=== PATIENT | male | born 1960 | race Caucasian/White ===

== ENCOUNTER 2021-02-28 18:25 | Inpatient (IN) | payer OTHER ==
[~2021-02-28 18:25] MED LIST: Iopamidol-370 76% 500 ML 1 ML ONE
[2021-02-28] MEDS ORDERED: Fentanyl 100 MCG/2 ML VIAL ONE ×7 (18:44→22:01)
[2021-02-28 19:08] LABS: Hemoglobin 16.4 g/dL (14.0-18.0); Mean Corpuscular HGB CONC 34.1 g/dL (32.0-36.0); Mean Corpuscular Hemoglobin 29.4 pg (27.0-31.0); Mean Corpuscular Volume 86.3 fL (78.0-98.0); Mean Platelet Volume 7.4 fL (7.4-10.4); Platelet Count 339 thou/uL (130-400); RBC Distribution Width 14.1 % (11.5-14.5); Red Blood Cell (RBC) Count 5.56 mill/uL (4.70-6.10); White Blood Cell (WBC) Count 20.5 thou/uL (4.8-10.8)
[2021-02-28 19:27] LABS: ALT (SGPT) 73 U/L (8-55); AST (SGOT) 62 U/L (5-34); Albumin 4.2 g/dL (3.5-5.0); Alkaline Phosphatase 96 U/L (40-110); Anion Gap 20 mmol/L (10-20); BUN (Urea Nitrogen) 39 mg/dL (8.4-25.7); Band 9 % (5-11); Bilirubin, Total 0.4 mg/dL (0.2-1.2); Calc. Creatinine Clearance 0 mL/min (70-130); Calcium 9.2 mg/dL (7.8-10.44); Carbon Dioxide 16 mmol/L (22-29); Chloride 103 mmol/L (98-107); Globulin 3.7 g/dL (2.4-3.5); Glucose 302 mg/dL (70-105); Lymphocytes 15 % (21-51); MDiff Complete? YES; Monocytes 4 % (0-10); Neutrophil 72 % (42-75); Platelet Morphology Comment Appears Adequate; Potassium 4.9 mmol/L (3.5-5.1); Protein, Total 7.9 g/dL (6.0-8.3); RBC Morphology Normal; Sodium 134 mmol/L (136-145)
[2021-02-28] MEDS ORDERED: Promethazine HCl 25 MG/ML VIAL ONE (19:44)
[2021-02-28] MEDS ORDERED: Bupivacaine PF 0.5% 30 ML VIAL ONE (20:03)
[2021-02-28] MEDS ORDERED: Lidocaine 1% w/Epinephrine 1:100K 20 ML VIAL ONE (20:03)
[2021-02-28] MEDS ORDERED: Midazolam HCl 2 mg/2 ml Vial ONE (20:08)
[2021-02-28] MEDS ORDERED: Ondansetron PF 4 MG/2 ML Vial IVP PRN (20:09)
[2021-02-28] MEDS ORDERED: Ondansetron ODT 4 MG TAB PO PRN (20:09)
[2021-02-28] MEDS ORDERED: Dextrose 50% Abboject 50 ML SYRINGE SLOW IVP PRN (20:09)
[2021-02-28] MEDS ORDERED: Promethazine HCl 25 MG/ML VIAL IM PRN ×2 (20:09→21:25)
[2021-02-28] MEDS ORDERED: Dextrose 5% in Water 1,000 ML IV PRN (20:09)
[2021-02-28] MEDS ORDERED: hydrALAZINE 20 MG/ML VIAL SLOW IVP PRN (20:09)
[2021-02-28] MEDS ORDERED: Rib Fracture Protocol PO PRN (20:15)
[2021-02-28] MEDS ORDERED: PHENYLEPHRINE-NS 100 MCG/ML 10 ML SYRINGE ONE (20:36)
[2021-02-28] MEDS ORDERED: Lidocaine 1% PF 5 ML VIAL ONE (20:36)
[2021-02-28] MEDS ORDERED: PROPOFOL 200 MG/20 ML VIAL ONE (20:36)
[2021-02-28] MEDS ORDERED: Succinylcholine 200 MG/10 ml SYRINGE FS ONE (20:36)
[2021-02-28 20:55] LABS: SARS-CoV-2 NAA Rapid Test Not Detected (NotDetected)
[2021-02-28] MEDS ORDERED: Promethazine HCl 25 MG/ML VIAL IVPB PRN (21:25)
[2021-02-28] MEDS ORDERED: Ondansetron HCl/PF 4 MG/2 ML Vial IVP PRN (21:25)
[2021-02-28] MEDS: Enoxaparin Sodium 30 MG/0.3 ML SYRINGE SC SCH (23:14)
[2021-02-28] MEDS: Lactated Ringer's 1,000 ML IV SCH (23:14)
[2021-02-28] MEDS: Famotidine 20 MG TAB PO SCH (23:15)
[2021-02-28] MEDS: Senokot S 8.6-50 MG TAB PO SCH (23:15)
[2021-02-28 23:19] LABS: Lactic Acid 3.5 mmol/L (0.5-2.2)
[2021-02-28 23:59] VITALS: BMI 48.9
[2021-03-01] MEDS: Morphine 4 MG/ML VIAL SLOW IVP PRN ×5 (00:33→22:55)
[2021-03-01] MEDS: HumaLOG 300 UNITS/3 ML VIAL SC PRN ×5 (00:48→21:22)
[2021-03-01] MEDS: Cyclobenzaprine 10 MG TAB PO PRN ×3 (00:49→21:33)
[2021-03-01 02:38] LABS: Bacteria/HPF None Seen HPF (None Seen); Bilirubin Negative (Negative); Blood, Urine 3+ (Negative); Clarity Clear (Clear); Glucose, Urine (Dipstick) Greater than 1000 mg/dL (Negative); Ketone, Urine Negative (Negative); Leukocyte Negative Leu/uL (Negative); Nitrite Negative (Negative); Protein, Urine (Dipstick) 50 mg/dL (Neg-Trace); RBC/HPF 21-50 HPF (0-3); Specific Gravity, Urine 1.039 (1.002-1.036); Squamous Epithelial None Seen HPF (0-3); Urobilinogen Normal mg/dL (Less than 2); pH, Urine 5.5 (5.0-9.0)
[2021-03-01 03:32] LABS: #Lymphocytes 1.2 thou/uL (1.20-3.40); #Monocytes 1.1 thou/uL (0.11-0.59); #Neutrophils 14.7 thou/uL (1.40-6.50); %Basophils 0.1 % (0.0-1.0); %Eosinophils 0.1 % (0.0-10.0); %Monocytes 6.3 % (0.0-10.0); %Neutrophils 86.5 % (42.0-75.0); Hemoglobin 14.8 g/dL (14.0-18.0); Mean Corpuscular HGB CONC 34.8 g/dL (32.0-36.0); Mean Corpuscular Hemoglobin 29.9 pg (27.0-31.0); Mean Corpuscular Volume 85.9 fL (78.0-98.0); Mean Platelet Volume 7.3 fL (7.4-10.4); Platelet Count 269 thou/uL (130-400); Red Blood Cell (RBC) Count 4.95 mill/uL (4.70-6.10); White Blood Cell (WBC) Count 16.9 thou/uL (4.8-10.8)
[2021-03-01 03:52] LABS: Anion Gap 19 mmol/L (10-20); BUN (Urea Nitrogen) 45 mg/dL (8.4-25.7); Calc. Creatinine Clearance 81 mL/min (70-130); Calcium 8.7 mg/dL (7.8-10.44); Carbon Dioxide 17 mmol/L (22-29); Chloride 104 mmol/L (98-107); Glucose 376 mg/dL (70-105); Magnesium 1.9 mg/dL (1.6-2.6); Phosphorus 4.2 mg/dL (2.3-4.7); Potassium 5.1 mmol/L (3.5-5.1); Sodium 135 mmol/L (136-145)
[2021-03-01] MEDS ORDERED: Ibuprofen 800 MG TAB PO SCH (06:00)
[2021-03-01] MEDS: traMADol HCl 50 MG TAB PO SCH ×3 (06:13→17:56)
[2021-03-01] MEDS: Acetaminophen 500 MG TAB PO SCH ×3 (06:14→17:55)
[2021-03-01] MEDS: Lactated Ringer's 1,000 ML IV SCH (07:16)
[2021-03-01] MEDS ORDERED: Sodium Chloride 0.9% 1,000 ML IV SCH (07:30)
[2021-03-01] MEDS ORDERED: Magnesium 2 GM/50 ML 2 GM in Premix Bag 1 BAG IVPB SCH (08:00)
[2021-03-01 08:24] LABS: Lactic Acid 2.4 mmol/L (0.5-2.2)
[2021-03-01 08:34] LABS: Hemoglobin A1c 7.9 % (4.0-6.0)
[2021-03-01] MEDS: Gabapentin 300 MG CAP PO SCH ×3 (10:00→21:23)
[2021-03-01] MEDS: Famotidine 20 MG TAB PO SCH ×2 (10:00→21:22)
[2021-03-01] MEDS: Enoxaparin Sodium 30 MG/0.3 ML SYRINGE SC SCH ×2 (10:00→21:22)
[2021-03-01] MEDS: Senokot S 8.6-50 MG TAB PO SCH ×2 (10:01→22:44)
[2021-03-01] MEDS: Polyethylene Glycol 3350 17 GM Packet PO SCH (10:01)
[2021-03-01] MEDS: Lantus 1000 UNITS/10 ML VIAL SC SCH (10:03)
[2021-03-01] MEDS: Sodium Bicarbonate 150 MEQ in Dextrose 5% in Water 1,000 ML IV SCH (10:13)
[2021-03-02] MEDS: traMADol HCl 50 MG TAB PO SCH ×4 (00:01→17:14)
[2021-03-02] MEDS: Morphine 4 MG/ML VIAL SLOW IVP PRN ×2 (03:39→08:07)
[2021-03-02] MEDS: Acetaminophen 500 MG TAB PO SCH ×4 (05:33→17:16)
[2021-03-02] MEDS: HumaLOG 300 UNITS/3 ML VIAL SC PRN ×3 (05:34→17:17)
[2021-03-02 07:00] LABS: #Lymphocytes 0.9 thou/uL (1.20-3.40); #Monocytes 1.1 thou/uL (0.11-0.59); #Neutrophils 14.3 thou/uL (1.40-6.50); %Basophils 0.1 % (0.0-1.0); %Eosinophils 0.1 % (0.0-10.0); %Lymphocytes 5.4 % (21.0-51.0); %Monocytes 6.7 % (0.0-10.0); %Neutrophils 87.7 % (42.0-75.0); Hemoglobin 14.3 g/dL (14.0-18.0); Mean Corpuscular Hemoglobin 29.3 pg (27.0-31.0); Mean Corpuscular Volume 86.3 fL (78.0-98.0); Mean Platelet Volume 7.6 fL (7.4-10.4); Platelet Count 219 thou/uL (130-400); RBC Distribution Width 13.9 % (11.5-14.5); Red Blood Cell (RBC) Count 4.86 mill/uL (4.70-6.10); White Blood Cell (WBC) Count 16.3 thou/uL (4.8-10.8)
[2021-03-02 07:53] LABS: Anion Gap 17 mmol/L (10-20); BUN (Urea Nitrogen) 22 mg/dL (8.4-25.7); Calc. Creatinine Clearance 172 mL/min (70-130); Calcium 8.7 mg/dL (7.8-10.44); Carbon Dioxide 23 mmol/L (22-29); Chloride 95 mmol/L (98-107); Glucose 319 mg/dL (70-105); Magnesium 2.2 mg/dL (1.6-2.6); Phosphorus 2.3 mg/dL (2.3-4.7); Potassium 4.5 mmol/L (3.5-5.1); Sodium 130 mmol/L (136-145)
[2021-03-02 07:59] LABS: Actual Bicarbonate (HCO3a) 24.9 mEq/L (22-28); Base Excess (BEa) 1.3 mEq/L (-2.0 to +3.0); CO2 Tension 36.6 mmHg (35.0-45.0); Calcium, Ionized (arterial) 1.07 mmol/L (1.12-1.30); Carboxyhemoglobin (COHb) 1.7 gm% (0.0-3.0); Hemoglobin (Hb) 14.9 g/dL (14.0-18.0); Potassium - ABG Lab 4.38 mmol/L (3.70-5.30); pH, Arterial 7.45 (7.35-7.45)
[2021-03-02 08:01] LABS: Puncture Site RRA
[2021-03-02] MEDS ORDERED: metFORMIN XR 500 MG TAB PO SCH (09:00)
[2021-03-02] MEDS ORDERED: Polyethylene Glycol 3350 17 GM Packet PO SCH (09:00)
[2021-03-02] MEDS ORDERED: Non-Formulary Item 1 EACH (Lisinopril [Lisinopril] 40 MG Tablet) PO SCH (09:00)
[2021-03-02] MEDS: Sodium Bicarbonate 150 MEQ in Dextrose 5% in Water 1,000 ML IV SCH ×3 (09:21→18:27)
[2021-03-02] MEDS: Enoxaparin Sodium 30 MG/0.3 ML SYRINGE SC SCH ×2 (09:24→21:03)
[2021-03-02] MEDS: guaiFENesin ER 600 MG TAB PO SCH ×2 (09:25→21:02)
[2021-03-02] MEDS: Polyethylene Glycol 3350 17 GM Packet PO SCH (09:25)
[2021-03-02] MEDS: Lisinopril 20 MG TAB PO SCH (09:25)
[2021-03-02] MEDS: metFORMIN XR 500 MG TAB PO SCH ×2 (09:26→21:02)
[2021-03-02] MEDS: Ketorolac Tromethamine 30 MG/ML VIAL IVP SCH ×3 (09:26→21:03)
[2021-03-02] MEDS: Famotidine 20 MG TAB PO SCH ×2 (09:28→21:02)
[2021-03-02] MEDS: Gabapentin 300 MG CAP PO SCH ×3 (09:28→21:03)
[2021-03-02] MEDS: Lantus 1000 UNITS/10 ML VIAL SC SCH (09:29)
[2021-03-02] MEDS: Senokot S 8.6-50 MG TAB PO SCH ×2 (09:30→21:08)
[2021-03-02] MEDS ORDERED: Dextrose 50% Abboject 50 ML SYRINGE SLOW IVP PRN (20:05)
[2021-03-02] MEDS ORDERED: Sodium Chloride 0.9% 1,000 ML IV SCH (20:15)
[2021-03-02] MEDS ORDERED: Pravastatin Sodium 40 MG TAB PO SCH (21:00)
[2021-03-02] MEDS: Atorvastatin Calcium 10 MG TAB PO SCH (21:02)
[2021-03-02] MEDS: Insulin Regular 300 UNITS/3 ML VIAL SC PRN (21:11)
[2021-03-03] MEDS: traMADol HCl 50 MG TAB PO SCH ×5 (00:02→23:50)
[2021-03-03] MEDS: Acetaminophen 500 MG TAB PO SCH ×5 (00:05→23:50)
[2021-03-03] MEDS: Ketorolac Tromethamine 30 MG/ML VIAL IVP SCH ×2 (04:08→09:17)
[2021-03-03 05:55] LABS: #Eosinphils 0.1 thou/uL (0.0-0.7); #Lymphocytes 1.4 thou/uL (1.20-3.40); #Monocytes 0.7 thou/uL (0.11-0.59); #Neutrophils 9.5 thou/uL (1.40-6.50); %Basophils 0.2 % (0.0-1.0); %Eosinophils 1.2 % (0.0-10.0); %Lymphocytes 12.1 % (21.0-51.0); %Neutrophils 80.5 % (42.0-75.0); Mean Corpuscular HGB CONC 33.2 g/dL (32.0-36.0); Mean Corpuscular Hemoglobin 29.2 pg (27.0-31.0); Mean Corpuscular Volume 87.9 fL (78.0-98.0); Mean Platelet Volume 7.5 fL (7.4-10.4); Platelet Count 169 thou/uL (130-400); RBC Distribution Width 13.7 % (11.5-14.5); Red Blood Cell (RBC) Count 4.12 mill/uL (4.70-6.10); White Blood Cell (WBC) Count 11.8 thou/uL (4.8-10.8)
[2021-03-03] MEDS: Insulin Regular 300 UNITS/3 ML VIAL SC PRN ×3 (05:59→21:48)
[2021-03-03 06:22] LABS: Anion Gap 17 mmol/L (10-20); BUN (Urea Nitrogen) 43 mg/dL (8.4-25.7); CK (CPK) 1404 U/L (30-200); Calc. Creatinine Clearance 59 mL/min (70-130); Carbon Dioxide 25 mmol/L (22-29); Chloride 91 mmol/L (98-107); Glucose 208 mg/dL (70-105); Magnesium 2.2 mg/dL (1.6-2.6); Potassium 4.1 mmol/L (3.5-5.1); Sodium 129 mmol/L (136-145)
[2021-03-03 06:24] LABS: Phosphorus 4.5 mg/dL (2.3-4.7)
[2021-03-03] MEDS: guaiFENesin ER 600 MG TAB PO SCH ×2 (08:33→20:20)
[2021-03-03] MEDS: Gabapentin 300 MG CAP PO SCH (08:33)
[2021-03-03] MEDS: Polyethylene Glycol 3350 17 GM Packet PO SCH (08:33)
[2021-03-03] MEDS: Senokot S 8.6-50 MG TAB PO SCH ×2 (08:34→20:21)
[2021-03-03] MEDS: Famotidine 20 MG TAB PO SCH ×2 (08:34→20:20)
[2021-03-03] MEDS: Cyclobenzaprine 10 MG TAB PO PRN (08:34)
[2021-03-03] MEDS: Enoxaparin Sodium 30 MG/0.3 ML SYRINGE SC SCH ×2 (08:34→20:21)
[2021-03-03] MEDS: Empagliflozin 25 MG TAB PO SCH (08:36)
[2021-03-03] MEDS: Lantus 1000 UNITS/10 ML VIAL SC SCH (08:38)
[2021-03-03] MEDS ORDERED: Non-Formulary Item 1 EACH (Dapagliflozin Propanediol [Farxiga] 10 MG Tablet) PO SCH (09:00)
[2021-03-03] MEDS: Lisinopril 20 MG TAB PO SCH (09:17)
[2021-03-03] MEDS: metFORMIN XR 500 MG TAB PO SCH ×2 (09:19→20:20)
[2021-03-03] MEDS ORDERED: Pregabalin 75 MG CAP PO SCH ×2 (09:45→21:00)
[2021-03-03] MEDS ORDERED: Furosemide 40 MG/4 ML VIAL SLOW IVP SCH (10:15)
[2021-03-03] MEDS: Sodium Bicarbonate 150 MEQ in Dextrose 5% in Water 1,000 ML IV SCH ×2 (11:00→20:20)
[2021-03-03] MEDS ORDERED: Hydrocortisone Sod Succ/PF 100 mg/2 ml Vial IVP SCH (12:15)
[2021-03-03] MEDS: Hydrocortisone Sod Succ/PF 100 mg/2 ml Vial IVP SCH ×2 (15:29→21:47)
[2021-03-03] MEDS: Morphine 2 MG/ML VIAL SLOW IVP PRN (18:01)
[2021-03-03] MEDS: Pregabalin 75 MG CAP PO SCH (20:21)
[2021-03-03] MEDS: Atorvastatin Calcium 10 MG TAB PO SCH (20:21)
[2021-03-04] MEDS: Cyclobenzaprine 10 MG TAB PO PRN ×2 (04:00→11:10)
[2021-03-04] MEDS: Hydrocortisone Sod Succ/PF 100 mg/2 ml Vial IVP SCH ×3 (05:24→20:33)
[2021-03-04] MEDS: Acetaminophen 500 MG TAB PO SCH ×5 (05:33→23:03)
[2021-03-04] MEDS: traMADol HCl 50 MG TAB PO SCH ×5 (05:34→23:03)
[2021-03-04] MEDS: Insulin Regular 300 UNITS/3 ML VIAL SC PRN ×4 (05:34→20:51)
[2021-03-04] MEDS: Senokot S 8.6-50 MG TAB PO SCH ×2 (08:08→20:33)
[2021-03-04] MEDS: guaiFENesin ER 600 MG TAB PO SCH ×2 (08:08→20:31)
[2021-03-04] MEDS: metFORMIN XR 500 MG TAB PO SCH ×2 (08:09→20:31)
[2021-03-04] MEDS: Lantus 1000 UNITS/10 ML VIAL SC SCH (08:09)
[2021-03-04] MEDS: Famotidine 20 MG TAB PO SCH ×2 (08:10→20:31)
[2021-03-04] MEDS: Empagliflozin 25 MG TAB PO SCH (08:10)
[2021-03-04] MEDS: Polyethylene Glycol 3350 17 GM Packet PO SCH (08:10)
[2021-03-04] MEDS: Enoxaparin Sodium 30 MG/0.3 ML SYRINGE SC SCH ×2 (08:10→20:31)
[2021-03-04] MEDS: Lisinopril 20 MG TAB PO SCH (08:11)
[2021-03-04 09:07] LABS: Phosphorus 3.9 mg/dL (2.3-4.7)
[2021-03-04 09:11] LABS: Anion Gap 13 mmol/L (10-20); BUN (Urea Nitrogen) 53 mg/dL (8.4-25.7); Calc. Creatinine Clearance 117 mL/min (70-130); Calcium 8.1 mg/dL (7.8-10.44); Carbon Dioxide 32 mmol/L (22-29); Chloride 89 mmol/L (98-107); Glucose 187 mg/dL (70-105); Magnesium 2.5 mg/dL (1.6-2.6); Potassium 4.3 mmol/L (3.5-5.1); Sodium 130 mmol/L (136-145)
[2021-03-04 09:22] LABS: Band 17 % (5-11); Hemoglobin 11.2 g/dL (14.0-18.0); Lymphocytes 6 % (21-51); MDiff Complete? YES; Mean Corpuscular Hemoglobin 29.4 pg (27.0-31.0); Mean Corpuscular Volume 86.4 fL (78.0-98.0); Mean Platelet Volume 7.1 fL (7.4-10.4); Monocytes 4 % (0-10); Neutrophil 73 % (42-75); Platelet Count 197 thou/uL (130-400); RBC Distribution Width 13.7 % (11.5-14.5); Red Blood Cell (RBC) Count 3.82 mill/uL (4.70-6.10); White Blood Cell (WBC) Count 12.1 thou/uL (4.8-10.8)
[2021-03-04] MEDS ORDERED: Pregabalin 75 MG CAP PO SCH (10:00)
[2021-03-04] MEDS ORDERED: diphenhydrAMINE 25 MG CAP PO PRN (10:11)
[2021-03-04] MEDS: HYDROcodone/Acetaminophen 10/325 mg Tablet PO PRN ×2 (10:26→17:19)
[2021-03-04] MEDS: Pregabalin 75 MG CAP PO SCH ×2 (10:44→20:32)
[2021-03-04] MEDS: Morphine 2 MG/ML VIAL SLOW IVP PRN ×3 (11:09→20:59)
[2021-03-04] MEDS ORDERED: Hydrocortisone Sod Succ/PF 100 mg/2 ml Vial IVP SCH (11:18)
[2021-03-04] MEDS ORDERED: Naloxone HCl 0.4 mg/ml Vial IV PRN (12:15)
[2021-03-04] MEDS ORDERED: HYDROmorphone 10 MG in Sodium Chloride 0.9% 95 ML IVPB PRN (12:15)
[2021-03-04] MEDS: acetaZOLAMIDE Sodium 500 mg Vial IVP SCH ×2 (15:18→23:02)
[2021-03-04] MEDS: Atorvastatin Calcium 10 MG TAB PO SCH (20:31)
[2021-03-04] MEDS ORDERED: acetaZOLAMIDE Sodium 500 mg Vial IVP SCH (21:00)
[2021-03-04] MEDS ORDERED: Sterile Water 10 ML VIAL FS PRN ×2 (22:54→22:55)
[2021-03-05] MEDS: Morphine 2 MG/ML VIAL SLOW IVP PRN (01:02)
[2021-03-05] MEDS: Acetaminophen 500 MG TAB PO SCH ×2 (04:57→12:20)
[2021-03-05] MEDS: Hydrocortisone Sod Succ/PF 100 mg/2 ml Vial IVP SCH ×3 (04:58→20:22)
[2021-03-05] MEDS: acetaZOLAMIDE Sodium 500 mg Vial IVP SCH ×3 (04:58→20:21)
[2021-03-05] MEDS: traMADol HCl 50 MG TAB PO SCH (04:59)
[2021-03-05] MEDS: Insulin Regular 300 UNITS/3 ML VIAL SC PRN ×3 (05:51→17:08)
[2021-03-05 09:36] LABS: Chloride 95 mmol/L (98-107); Potassium 4.1 mmol/L (3.5-5.1); Sodium 132 mmol/L (136-145)
[2021-03-05 09:37] LABS: Calcium 9.1 mg/dL (7.8-10.44); Glucose 215 mg/dL (70-105)
[2021-03-05 09:39] LABS: Anion Gap 14 mmol/L (10-20); Carbon Dioxide 27 mmol/L (22-29)
[2021-03-05] MEDS: Enoxaparin Sodium 30 MG/0.3 ML SYRINGE SC SCH ×2 (09:40→20:21)
[2021-03-05 09:41] LABS: Calc. Creatinine Clearance 158 mL/min (70-130)
[2021-03-05] MEDS: guaiFENesin ER 600 MG TAB PO SCH ×2 (09:41→20:23)
[2021-03-05] MEDS: metFORMIN XR 500 MG TAB PO SCH ×2 (09:41→20:22)
[2021-03-05] MEDS: Senokot S 8.6-50 MG TAB PO SCH ×2 (09:41→20:23)
[2021-03-05 09:42] LABS: BUN (Urea Nitrogen) 44 mg/dL (8.4-25.7)
[2021-03-05] MEDS: Empagliflozin 25 MG TAB PO SCH (09:42)
[2021-03-05] MEDS: Famotidine 20 MG TAB PO SCH ×2 (09:42→20:22)
[2021-03-05] MEDS: Lisinopril 20 MG TAB PO SCH (09:42)
[2021-03-05 09:43] LABS: Magnesium 2.5 mg/dL (1.6-2.6)
[2021-03-05] MEDS: Polyethylene Glycol 3350 17 GM Packet PO SCH (09:43)
[2021-03-05] MEDS: Pregabalin 75 MG CAP PO SCH ×2 (09:43→20:22)
[2021-03-05] MEDS: Lantus 1000 UNITS/10 ML VIAL SC SCH (09:44)
[2021-03-05 09:53] LABS: Phosphorus 4.9 mg/dL (2.3-4.7)
[2021-03-05] MEDS ORDERED: Piperacillin/Tazobactam 3.375 GM in Sodium Chloride 0.9% 100 ML IVPB SCH ×2 (11:00→12:00)
[2021-03-05] MEDS: HYDROcodone/Acetaminophen 10/325 mg Tablet PO SCH ×3 (12:21→20:23)
[2021-03-05] MEDS: Acetylcysteine 10% 100 MG/ML 30 ml Vial INH SCH ×2 (13:15→19:28)
[2021-03-05] MEDS: Acetaminophen 325 MG TAB PO SCH ×2 (17:06→23:15)
[2021-03-05] MEDS: Piperacillin/Tazobactam 3.375 GM in Sodium Chloride 0.9% 100 ML IVPB SCH (17:12)
[2021-03-05] MEDS: Atorvastatin Calcium 10 MG TAB PO SCH (20:22)
[2021-03-06] MEDS: Acetylcysteine 10% 100 MG/ML 30 ml Vial INH SCH ×5 (02:00→23:29)
[2021-03-06] MEDS: HYDROcodone/Acetaminophen 10/325 mg Tablet PO SCH ×4 (03:13→20:14)
[2021-03-06] MEDS: Piperacillin/Tazobactam 3.375 GM in Sodium Chloride 0.9% 100 ML IVPB SCH ×3 (03:14→18:11)
[2021-03-06] MEDS: Hydrocortisone Sod Succ/PF 100 mg/2 ml Vial IVP SCH ×3 (05:04→20:13)
[2021-03-06] MEDS: Acetaminophen 325 MG TAB PO SCH ×4 (05:04→23:20)
[2021-03-06] MEDS: acetaZOLAMIDE Sodium 500 mg Vial IVP SCH (05:05)
[2021-03-06 05:53] LABS: Anion Gap 15 mmol/L (10-20); BUN (Urea Nitrogen) 33 mg/dL (8.4-25.7); Calc. Creatinine Clearance 205 mL/min (70-130); Calcium 9.1 mg/dL (7.8-10.44); Carbon Dioxide 21 mmol/L (22-29); Chloride 100 mmol/L (98-107); Glucose 166 mg/dL (70-105); Magnesium 2.3 mg/dL (1.6-2.6); Phosphorus 4.4 mg/dL (2.3-4.7); Potassium 3.9 mmol/L (3.5-5.1); Sodium 132 mmol/L (136-145)
[2021-03-06] MEDS ORDERED: Furosemide 20 MG/2 ML VIAL SLOW IVP SCH (09:00)
[2021-03-06] MEDS: Saccharomyces boulardii 250 MG CAP PO SCH (09:36)
[2021-03-06] MEDS: metFORMIN XR 500 MG TAB PO SCH ×2 (09:37→20:14)
[2021-03-06] MEDS: Enoxaparin Sodium 30 MG/0.3 ML SYRINGE SC SCH ×2 (09:37→20:13)
[2021-03-06] MEDS: guaiFENesin ER 600 MG TAB PO SCH ×2 (09:38→20:14)
[2021-03-06] MEDS: Lisinopril 20 MG TAB PO SCH (09:38)
[2021-03-06] MEDS: Famotidine 20 MG TAB PO SCH ×2 (09:38→20:14)
[2021-03-06] MEDS: Pregabalin 75 MG CAP PO SCH ×2 (09:39→20:14)
[2021-03-06] MEDS: Empagliflozin 25 MG TAB PO SCH (09:39)
[2021-03-06] MEDS: Polyethylene Glycol 3350 17 GM Packet PO SCH (09:40)
[2021-03-06] MEDS: Lantus 1000 UNITS/10 ML VIAL SC SCH (09:40)
[2021-03-06] MEDS: Senokot S 8.6-50 MG TAB PO SCH ×2 (09:41→20:13)
[2021-03-06] MEDS: Insulin Regular 300 UNITS/3 ML VIAL SC PRN (18:46)
[2021-03-06] MEDS: Atorvastatin Calcium 10 MG TAB PO SCH (20:14)
[2021-03-07] MEDS: Acetaminophen 325 MG TAB PO SCH ×4 (05:47→23:29)
[2021-03-07] MEDS: HYDROcodone/Acetaminophen 10/325 mg Tablet PO SCH ×4 (05:47→22:06)
[2021-03-07] MEDS: Piperacillin/Tazobactam 3.375 GM in Sodium Chloride 0.9% 100 ML IVPB SCH ×3 (05:47→19:30)
[2021-03-07] MEDS: Hydrocortisone Sod Succ/PF 100 mg/2 ml Vial IVP SCH ×2 (05:48→13:26)
[2021-03-07 06:33] LABS: Anion Gap 13 mmol/L (10-20); BUN (Urea Nitrogen) 29 mg/dL (8.4-25.7); Calc. Creatinine Clearance 205 mL/min (70-130); Calcium 9.2 mg/dL (7.8-10.44); Carbon Dioxide 23 mmol/L (22-29); Chloride 104 mmol/L (98-107); Glucose 139 mg/dL (70-105); Phosphorus 3.8 mg/dL (2.3-4.7); Potassium 3.8 mmol/L (3.5-5.1); Sodium 136 mmol/L (136-145)
[2021-03-07 06:44] LABS: #Eosinphils 0.2 thou/uL (0.0-0.7); #Lymphocytes 1.3 thou/uL (1.20-3.40); #Monocytes 0.9 thou/uL (0.11-0.59); #Neutrophils 8.6 thou/uL (1.40-6.50); %Basophils 0.4 % (0.0-1.0); %Eosinophils 1.9 % (0.0-10.0); %Lymphocytes 11.6 % (21.0-51.0); %Monocytes 8.5 % (0.0-10.0); %Neutrophils 77.6 % (42.0-75.0); Hemoglobin 11.4 g/dL (14.0-18.0); Mean Corpuscular HGB CONC 32.8 g/dL (32.0-36.0); Mean Corpuscular Hemoglobin 29.2 pg (27.0-31.0); Mean Corpuscular Volume 89.1 fL (78.0-98.0); Mean Platelet Volume 6.8 fL (7.4-10.4); Platelet Count 315 thou/uL (130-400); RBC Distribution Width 13.7 % (11.5-14.5); Red Blood Cell (RBC) Count 3.91 mill/uL (4.70-6.10); White Blood Cell (WBC) Count 11.1 thou/uL (4.8-10.8)
[2021-03-07] MEDS: Acetylcysteine 10% 100 MG/ML 30 ml Vial INH SCH ×2 (08:08→13:37)
[2021-03-07] MEDS ORDERED: Furosemide 20 MG/2 ML VIAL SLOW IVP SCH (09:00)
[2021-03-07] MEDS: metFORMIN XR 500 MG TAB PO SCH ×2 (09:22→22:05)
[2021-03-07] MEDS: Famotidine 20 MG TAB PO SCH ×2 (09:23→22:04)
[2021-03-07] MEDS: Empagliflozin 25 MG TAB PO SCH (09:23)
[2021-03-07] MEDS: Pregabalin 75 MG CAP PO SCH ×2 (09:23→22:05)
[2021-03-07] MEDS: Lisinopril 20 MG TAB PO SCH (09:23)
[2021-03-07] MEDS: guaiFENesin ER 600 MG TAB PO SCH ×2 (09:23→22:05)
[2021-03-07] MEDS: Saccharomyces boulardii 250 MG CAP PO SCH (09:23)
[2021-03-07] MEDS: Lantus 1000 UNITS/10 ML VIAL SC SCH (09:24)
[2021-03-07] MEDS: Enoxaparin Sodium 30 MG/0.3 ML SYRINGE SC SCH ×2 (09:24→22:03)
[2021-03-07] MEDS: Senokot S 8.6-50 MG TAB PO SCH ×2 (09:25→22:07)
[2021-03-07] MEDS: Polyethylene Glycol 3350 17 GM Packet PO SCH (09:26)
[2021-03-07] MEDS: traMADol HCl 50 MG TAB PO SCH ×3 (13:25→23:27)
[2021-03-07] MEDS: Atorvastatin Calcium 10 MG TAB PO SCH (22:05)
[2021-03-07] MEDS ORDERED: Calcium Carbonate 500 MG ChewTAB PO PRN (22:25)
[2021-03-08] MEDS: Piperacillin/Tazobactam 3.375 GM in Sodium Chloride 0.9% 100 ML IVPB SCH (03:36)
[2021-03-08] MEDS: HYDROcodone/Acetaminophen 10/325 mg Tablet PO SCH ×2 (03:37→10:28)
[2021-03-08] MEDS: traMADol HCl 50 MG TAB PO SCH ×2 (05:53→12:53)
[2021-03-08] MEDS: Acetaminophen 325 MG TAB PO SCH ×2 (05:55→12:57)
[2021-03-08 06:23] LABS: Anion Gap 15 mmol/L (10-20); BUN (Urea Nitrogen) 25 mg/dL (8.4-25.7); Calc. Creatinine Clearance 215 mL/min (70-130); Carbon Dioxide 21 mmol/L (22-29); Chloride 104 mmol/L (98-107); Glucose 127 mg/dL (70-105); Magnesium 1.9 mg/dL (1.6-2.6); Phosphorus 3.9 mg/dL (2.3-4.7); Potassium 3.7 mmol/L (3.5-5.1); Sodium 136 mmol/L (136-145)
[2021-03-08] MEDS ORDERED: Azithromycin 250 MG TAB PO SCH (09:00)
[2021-03-08] MEDS ORDERED: HYDROcodone/Acetaminophen 10/325 mg Tablet PO PRN (10:05)
[2021-03-08] MEDS: Lantus 1000 UNITS/10 ML VIAL SC SCH (10:06)
[2021-03-08] MEDS: Enoxaparin Sodium 30 MG/0.3 ML SYRINGE SC SCH (10:12)
[2021-03-08] MEDS: Empagliflozin 25 MG TAB PO SCH (10:12)
[2021-03-08] MEDS: Pregabalin 75 MG CAP PO SCH (10:13)
[2021-03-08] MEDS: Lisinopril 20 MG TAB PO SCH (10:13)
[2021-03-08] MEDS: Famotidine 20 MG TAB PO SCH (10:13)
[2021-03-08] MEDS: guaiFENesin ER 600 MG TAB PO SCH (10:14)
[2021-03-08] MEDS: Senokot S 8.6-50 MG TAB PO SCH (10:15)
[2021-03-08] MEDS: Polyethylene Glycol 3350 17 GM Packet PO SCH (10:15)
[2021-03-08] MEDS: metFORMIN XR 500 MG TAB PO SCH (10:15)
[2021-03-08] MEDS: Saccharomyces boulardii 250 MG CAP PO SCH (10:15)
[2021-03-08 12:06] VITALS: TEMP 98.3
[2021-03-08 15:19] VITALS: BP 128/84
== END 2021-03-08 15:25 | DRG 963 ==
LOC: ERS 18:25 → SDC/OP 20:28 → IMCU/EMU 20:29 → SJJU 03-01 13:20
PROVIDERS: ADMIT Specialist; ATTEND Specialist
PROC: 0W9B00Z Drainage of Left Pleural Cavity with Drainage Device, Open Approach (ICD-10-PCS; principal; 2021-02-28)
PROC: 5A09557 Assistance with Respiratory Ventilation, Greater than 96 Consecutive Hours, Continuous Positive Airway Pressure (ICD-10-PCS; 2021-03-02)
DX: S22.5XXA Flail chest, initial encounter for closed fracture (principal); J96.01 Acute respiratory failure with hypoxia; Z20.822 Contact with and (suspected) exposure to COVID-19; T79.6XXA Traumatic ischemia of muscle, initial encounter; S27.2XXA Traumatic hemopneumothorax, initial encounter; S27.321A Contusion of lung, unilateral, initial encounter; N17.9 Acute kidney failure, unspecified; E27.40 Unspecified adrenocortical insufficiency; E87.1 Hypo-osmolality and hyponatremia; S42.132A Displaced fracture of coracoid process, left shoulder, initial encounter for closed fracture; W17.89XA Other fall from one level to another, initial encounter; E78.5 Hyperlipidemia, unspecified; I10 Essential (primary) hypertension; E66.9 Obesity, unspecified; Z96.653 Presence of artificial knee joint, bilateral; E11.65 Type 2 diabetes mellitus with hyperglycemia; G47.33 Obstructive sleep apnea (adult) (pediatric); E66.01 Morbid (severe) obesity due to excess calories; E83.42 Hypomagnesemia; Z68.42 Body mass index [BMI] 45.0-49.9, adult; Z88.5 Allergy status to narcotic agent
CPT/HCPCS: 36415; 36416; 36600; 70450; 71045; 71260; 72125; 74177; 76000; 80048; 80053; 81001; 82010; 82533; 82550; 82805; 83036; 83605; 83735; 83880; 84100; 85007; 85025; 85027; 86850; 86900; 86901; 87070; 87077; 87205; 93005; 93306; 94660; 96374; G0390; J1120; J1650; J1720; J1815; J1885; J1940; J2250; J2270; J2543; J2550; J2704; J3010; J3475; J3490; J7070; J7608; J7620; Q0163; Q9967; S0020; U0002; U0005

== ENCOUNTER 2021-04-10 11:11 | Outpatient (CLI) | payer OTHER | END 2021-04-10 11:12 | disposition home or self-care (01) | LOC: BICRAD 11:11 | PROVIDERS: ATTEND Surgery | DX: S22.43XD Multiple fractures of ribs, bilateral, subsequent encounter for fracture with routine healing (principal); J98.4 Other disorders of lung | CPT/HCPCS: 71046 ==

== ENCOUNTER 2022-05-25 14:23 | Inpatient (IN) | payer BC ==
[2022-05-25] MEDS ORDERED: Ondansetron PF 4 MG/2 ML Vial IVP PRN (16:39)
[2022-05-25] MEDS ORDERED: Acetaminophen 325 MG TAB PO PRN (16:39)
[2022-05-25] MEDS ORDERED: Senokot S 8.6-50 MG TAB PO PRN (16:39)
[2022-05-25] MEDS ORDERED: Guaifenesin DM 100-10/5 ML UDCUP PO PRN (16:39)
[2022-05-25] MEDS ORDERED: Dextrose 5% in Water 1,000 ML IV PRN (16:45)
[2022-05-25] MEDS ORDERED: Dextrose 50% Abboject 50 ML SYRINGE SLOW IVP PRN (16:45)
[2022-05-25] MEDS ORDERED: HumaLOG 300 UNITS/3 ML VIAL SC PRN (16:45)
[2022-05-25] MEDS ORDERED: Piperacillin/Tazobactam 3.375 GM VIAL ONE (17:07)
[2022-05-25] MEDS ORDERED: Enoxaparin Sodium 60 MG/0.6 ML SYRINGE ONE (17:09)
[2022-05-25] MEDS ORDERED: Enoxaparin Sodium 100 MG/ML SYRINGE ONE (17:09)
[2022-05-25 22:10] VITALS: BMI 42.7
[2022-05-25] MEDS: Sodium Chloride 0.9% 1,000 ML IV SCH (23:04)
[2022-05-25] MEDS: Piperacillin/Tazobactam 3.375 GM in Sodium Chloride 0.9% 100 ML IVPB SCH (23:04)
[2022-05-25] MEDS: Famotidine 20 MG TAB PO SCH (23:05)
[2022-05-25] MEDS: hydrALAZINE 20 MG/ML VIAL SLOW IVP PRN (23:10)
[2022-05-25] MEDS: Ketorolac Tromethamine 30 MG/ML VIAL IVP SCH (23:18)
[2022-05-26 02:00] LABS: Legionella Urinary Ag Negative (Negative); Strep pneumo Urine Ag NEGATIVE (NEGATIVE)
[2022-05-26] MEDS: hydrALAZINE 20 MG/ML VIAL SLOW IVP PRN ×2 (03:01→12:11)
[2022-05-26 04:45] LABS: #Basophils 0.1 thou/uL (0.0-0.2); #Lymphocytes 1.6 thou/uL (1.20-3.40); #Monocytes 1.3 thou/uL (0.11-0.59); #Neutrophils 11.3 thou/uL (1.40-6.50); %Basophils 0.4 % (0.0-1.0); %Eosinophils 0.1 % (0.0-10.0); %Lymphocytes 11.1 % (21.0-51.0); %Monocytes 9.3 % (0.0-10.0); %Neutrophils 79.2 % (42.0-75.0); Hemoglobin 14.1 g/dL (14.0-18.0); Mean Corpuscular HGB CONC 32.2 g/dL (32.0-36.0); Mean Corpuscular Hemoglobin 28.2 pg (27.0-31.0); Mean Corpuscular Volume 87.5 fL (78.0-98.0); Mean Platelet Volume 7.3 fL (7.4-10.4); Platelet Count 289 thou/uL (130-400); Red Blood Cell (RBC) Count 5.01 mill/uL (4.70-6.10); White Blood Cell (WBC) Count 14.3 thou/uL (4.8-10.8)
[2022-05-26 05:00] LABS: Anion Gap 12 mmol/L (10-20); BUN (Urea Nitrogen) 16 mg/dL (8.4-25.7); Calc. Creatinine Clearance 188 mL/min (70-130); Calcium 8.9 mg/dL (7.8-10.44); Carbon Dioxide 21 mmol/L (22-29); Chloride 109 mmol/L (98-107); Estimated GFR 101; Glucose 169 mg/dL (70-105); Magnesium 1.7 mg/dL (1.6-2.6); Potassium 3.7 mmol/L (3.5-5.1); Sodium 138 mmol/L (136-145)
[2022-05-26] MEDS: Apixaban 5 MG TAB PO SCH ×2 (05:54→17:47)
[2022-05-26] MEDS: traMADol HCl 50 MG TAB PO PRN (05:54)
[2022-05-26] MEDS: Sodium Chloride 0.9% 1,000 ML IV SCH ×3 (05:58→17:47)
[2022-05-26] MEDS: Ketorolac Tromethamine 30 MG/ML VIAL IVP SCH (05:59)
[2022-05-26] MEDS ORDERED: Carvedilol 6.25 MG TAB PO SCH (09:00)
[2022-05-26] MEDS ORDERED: FLU VACC QS2022-23(6MOS UP)/PF 60 MCG/0.5 ML SYRINGE IM ONE (09:00)
[2022-05-26] MEDS ORDERED: Metoprolol Tartrate 5 MG/5 ML VIAL IVP PRN (09:21)
[2022-05-26] MEDS: Pregabalin 75 MG CAP PO SCH ×2 (10:03→20:57)
[2022-05-26] MEDS: Loratadine 10 MG TAB PO SCH (10:04)
[2022-05-26] MEDS: Famotidine 20 MG TAB PO SCH (10:04)
[2022-05-26] MEDS: Piperacillin/Tazobactam 3.375 GM in Sodium Chloride 0.9% 100 ML IVPB SCH ×2 (10:05→17:47)
[2022-05-26] MEDS ORDERED: Iopamidol-370 76% 500 ML 1 ML ONE (11:24)
[2022-05-26] MEDS: Carvedilol 6.25 MG TAB PO SCH (17:47)
[2022-05-26] MEDS: Insulin Glargine 30 UNITS/0.3 ML VIAL SC SCH (20:03)
[2022-05-26] MEDS: Fentanyl 100 MCG/2 ML VIAL SLOW IVP PRN (20:45)
[2022-05-26] MEDS: Atorvastatin Calcium 10 MG TAB PO SCH (20:49)
[2022-05-26] MEDS: Empagliflozin 25 MG TAB PO SCH (20:50)
[2022-05-27] MEDS: Piperacillin/Tazobactam 3.375 GM in Sodium Chloride 0.9% 100 ML IVPB SCH ×3 (00:28→16:12)
[2022-05-27] MEDS: Pantoprazole 40 MG VIAL IVP SCH ×3 (00:28→21:22)
[2022-05-27 04:16] LABS: #Eosinphils 0.1 thou/uL (0.0-0.7); #Lymphocytes 1.7 thou/uL (1.20-3.40); #Monocytes 0.8 thou/uL (0.11-0.59); #Neutrophils 7.4 thou/uL (1.40-6.50); %Basophils 0.3 % (0.0-1.0); %Eosinophils 0.5 % (0.0-10.0); %Lymphocytes 17.3 % (21.0-51.0); %Monocytes 8.1 % (0.0-10.0); %Neutrophils 73.8 % (42.0-75.0); Hemoglobin 13.3 g/dL (14.0-18.0); Mean Corpuscular Hemoglobin 27.9 pg (27.0-31.0); Mean Corpuscular Volume 87.5 fL (78.0-98.0); Mean Platelet Volume 6.7 fL (7.4-10.4); Platelet Count 294 thou/uL (130-400); RBC Distribution Width 13.9 % (11.5-14.5); Red Blood Cell (RBC) Count 4.76 mill/uL (4.70-6.10)
[2022-05-27 04:21] LABS: Anion Gap 14 mmol/L (10-20); BUN (Urea Nitrogen) 12 mg/dL (8.4-25.7); Calc. Creatinine Clearance 220 mL/min (70-130); Calcium 8.5 mg/dL (7.8-10.44); Carbon Dioxide 21 mmol/L (22-29); Chloride 107 mmol/L (98-107); Estimated GFR 105; Glucose 158 mg/dL (70-105); Magnesium 1.7 mg/dL (1.6-2.6); Potassium 3.6 mmol/L (3.5-5.1); Sodium 138 mmol/L (136-145)
[2022-05-27] MEDS: Fentanyl 100 MCG/2 ML VIAL SLOW IVP PRN ×2 (05:45→21:40)
[2022-05-27] MEDS: Sodium Chloride 0.9% 1,000 ML IV SCH ×2 (05:47→18:28)
[2022-05-27] MEDS: Carvedilol 6.25 MG TAB PO SCH ×2 (08:19→16:12)
[2022-05-27] MEDS: Loratadine 10 MG TAB PO SCH (08:20)
[2022-05-27] MEDS: Pregabalin 75 MG CAP PO SCH ×2 (08:20→21:22)
[2022-05-27] MEDS: hydrALAZINE 20 MG/ML VIAL SLOW IVP PRN ×2 (08:20→11:40)
[2022-05-27] MEDS ORDERED: PROPOFOL 200 MG/20 ML VIAL ONE (14:43)
[2022-05-27] MEDS ORDERED: Lidocaine 1% PF 5 ML VIAL ONE (14:43)
[2022-05-27] MEDS ORDERED: Magnesium 2 GM/50 ML(in water) 2 GM in Premix Bag 1 BAG IVPB SCH (16:15)
[2022-05-27] MEDS ORDERED: Amlodipine 10 MG TAB PO SCH (16:45)
[2022-05-27] MEDS ORDERED: Enoxaparin Sodium 60 MG/0.6 ML SYRINGE SC SCH (21:00)
[2022-05-27] MEDS ORDERED: Apixaban 5 MG TAB PO SCH (21:00)
[2022-05-27] MEDS: Empagliflozin 25 MG TAB PO SCH (21:18)
[2022-05-27] MEDS: Atorvastatin Calcium 10 MG TAB PO SCH (21:18)
[2022-05-27] MEDS: Insulin Glargine 30 UNITS/0.3 ML VIAL SC SCH ×2 (21:20→21:30)
[2022-05-28] MEDS: Piperacillin/Tazobactam 3.375 GM in Sodium Chloride 0.9% 100 ML IVPB SCH ×2 (00:35→09:16)
[2022-05-28] MEDS ORDERED: Amlodipine 10 MG TAB PO SCH (09:00)
[2022-05-28] MEDS: Pregabalin 75 MG CAP PO SCH (09:13)
[2022-05-28] MEDS: Loratadine 10 MG TAB PO SCH (09:14)
[2022-05-28] MEDS: Carvedilol 6.25 MG TAB PO SCH ×2 (09:14→17:31)
[2022-05-28] MEDS: traMADol HCl 50 MG TAB PO PRN (09:16)
[2022-05-28] MEDS: Pantoprazole 40 MG VIAL IVP SCH (09:21)
[2022-05-28 16:49] VITALS: BP 167/85; TEMP 97.7
[2022-05-28 20:36] LABS: L.pneumophilia Abs <0.91 OD ratio (0.00-0.90)
== END 2022-05-28 18:10 | disposition home or self-care (01) | DRG 178 ==
LOC: ERS 14:23 → 2NO 16:09
PROVIDERS: ADMIT Internal Medicine; ATTEND Internal Medicine
PROC: 0DJ08ZZ Inspection of Upper Intestinal Tract, Via Natural or Artificial Opening Endoscopic (ICD-10-PCS; principal; 2022-05-27)
DX: J69.0 Pneumonitis due to inhalation of food and vomit (principal); C95.91 Leukemia, unspecified, in remission; K22.10 Ulcer of esophagus without bleeding; Z68.41 Body mass index [BMI] 40.0-44.9, adult; Z20.822 Contact with and (suspected) exposure to COVID-19; R13.10 Dysphagia, unspecified; E11.9 Type 2 diabetes mellitus without complications; I10 Essential (primary) hypertension; K44.9 Diaphragmatic hernia without obstruction or gangrene; K29.70 Gastritis, unspecified, without bleeding; K26.9 Duodenal ulcer, unspecified as acute or chronic, without hemorrhage or perforation; E66.01 Morbid (severe) obesity due to excess calories; E78.5 Hyperlipidemia, unspecified; Z96.612 Presence of left artificial shoulder joint; R79.89 Other specified abnormal findings of blood chemistry; E83.42 Hypomagnesemia; Z96.653 Presence of artificial knee joint, bilateral; R16.0 Hepatomegaly, not elsewhere classified; Z79.899 Other long term (current) drug therapy; Z79.84 Long term (current) use of oral hypoglycemic drugs; Z88.5 Allergy status to narcotic agent; Z87.01 Personal history of pneumonia (recurrent)
CPT/HCPCS: 36415; 36416; 71275; 74177; 80048; 83690; 83735; 83880; 85025; 85379; 86713; 87449; 87899; 93970; 94760; 96365; 96366; 96372; C9113; J0360; J1650; J1815; J1885; J2405; J2543; J2704; J3010; J3475; J3490; J7050; Q9967; U0003; U0005